=== PATIENT | female | born 1965 | race Caucasian/White ===

== ENCOUNTER 2025-02-12 15:11 | Inpatient (IN) | payer MEDICARE, OTHER ==
[~2025-02-12] VITALS: Ht 154.9 cm; Wt 61.2 kg
[2025-02-12 15:40] LABS: PLATELET COUNT (AUTO) 206 K/uL (179-408); RED BLOOD CELL COUNT(AUTO) 4.06 MIL/uL (3.63-4.92); RED CELL DISTRIBUTION WIDTH 13.4 % (12.3-17.7); WHITE BLOOD COUNT (AUTO) 4.4 K/uL (3.8-11.8)
[2025-02-12 15:47] LABS: CREATININE 0.7 mg/dL (0.6-1.3); SODIUM SERUM 138.0 mmol/L (136-145); UREA NITROGEN, BLOOD 13.0 mg/dL (7-18)
[2025-02-12 15:53] LABS: ASPARTATE AMINOTRANSFERASE 27.0 U/L (15-37); TOTAL PROTEIN, SERUM 6.1 g/dL (6.4-8.2)
[2025-02-12 15:56] LABS: ETHANOL < 3 MG/DL (0-10)
[2025-02-12] MEDS ORDERED: DOCU-141 PO (16:07)
[2025-02-12] MEDS ORDERED: CYAN10009 PO (16:07)
[2025-02-12] MEDS ORDERED: BUDE0.25 NEB (16:07)
[2025-02-12] MEDS ORDERED: POLY119P17 PO (16:10)
[2025-02-12] MEDS ORDERED: GABA-532 PO (16:10)
[2025-02-12] MEDS ORDERED: DICL100G31 TOP (16:10)
[2025-02-12] MEDS ORDERED: LEVO75CA5 PO (16:12)
[2025-02-12] MEDS ORDERED: HYDR-501 PO (16:12)
[2025-02-12] MEDS ORDERED: LEVE750T4 PO (16:12)
[2025-02-12] MEDS ORDERED: MELA3CAP2 PO (16:14)
[2025-02-12] MEDS ORDERED: AMIN30LI45 PO (16:14)
[2025-02-12] MEDS ORDERED: LISI2.5T14 PO (16:14)
[2025-02-12] MEDS ORDERED: MIDO5TAB5 PO (16:17)
[2025-02-12] MEDS ORDERED: PERP2TAB5 PO (16:17)
[2025-02-12] MEDS ORDERED: NORT75CA PO (16:17)
[2025-02-12] MEDS ORDERED: VITA1CAP PO (16:18)
[2025-02-12] MEDS ORDERED: OLANZAPINE 10 MG VIAL IM ONE (16:39)
[2025-02-12] MEDS: OLANZAPINE 10 MG VIAL IM ONE (16:43)
[2025-02-12 17:51] LABS: *BILIRUBIN,URIN NEGATIVE (NEGATIVE); *BLOOD, URINE NEGATIVE (NEGATIVE); *COLOR,URINE YELLOW (YELLOW); *KETONES,URINE NEGATIVE (NEGATIVE); *PROTEIN,URINE NEGATIVE (NEGATIVE); *UROBILINOGEN,URINE 1.0 E.U./dl (NORMAL); LEUKOCYTE ESTERASE ,URINE 1+ (NEGATIVE); NITRITE, URINE NEGATIVE (NEGATIVE); UGLUCOSE NEGATIVE (NEGATIVE)
[2025-02-12 18:11] LABS: *CLARITY,URINE CLEAR (CLEAR)
[2025-02-12 18:14] LABS: *AMPHETAMINE, URINE NEGATIVE (NEGATIVE); *BARBITURATE, URINE NEGATIVE (NEGATIVE); *BENZODIAZEPINE, URINE NEGATIVE (NEGATIVE); *CANNABINOID, URINE NEGATIVE (NEGATIVE); *COCCAINE, URINE NEGATIVE (NEGATIVE); *OPIATE, URINE NEGATIVE (NEGATIVE); *PHENCYCLIDINE SCREEN,URINE NEGATIVE (NEGATIVE); FENTANYL, URINE NEGATIVE (NEGATIVE); SQUAMOUS EPITHELIAL CELL,UR FEW /HPF (NONE SEEN)
[2025-02-12] MEDS ORDERED: MAG HYDROX/AL HYDROX/SIMETH 30 ML LIQUID UDC PO PRN (21:45)
[2025-02-12] MEDS: BLOOD SUGAR DIAGNOSTIC 1 EACH STRIP VI ONE (21:45)
[2025-02-12] MEDS ORDERED: MAGNESIUM HYDROXIDE 30 ML LIQUID UDC PO PRN (21:45)
[2025-02-12 22:20] VITALS: BP 102/57; TEMP 97.4; O2SAT 99
[2025-02-13 07:30] VITALS: BP 102/67; TEMP 98; O2SAT 98
[2025-02-13 08:19] LABS: GLUCOSE FASTING 144.0 mg/dL (70-115)
[2025-02-13] MEDS ORDERED: VITA-287 PO (10:18)
[2025-02-13] MEDS ORDERED: LEVO75TA7 PO (10:18)
[2025-02-13] MEDS: diphenhydrAMINE 50 MG/1 ML VIAL IM ONE (10:34)
[2025-02-13] MEDS: HALOPERIDOL LACTATE 5 MG/1 ML VIAL IM ONE (10:34)
[2025-02-13] MEDS: LORAZEPAM 2 MG/1 ML VIAL IM ONE (10:34)
[2025-02-13 15:57] VITALS: BP 99/61; TEMP 98; O2SAT 99
[2025-02-13 19:00] VITALS: O2SAT 97
[2025-02-13 19:15] VITALS: O2SAT 21; O2SAT 99
[2025-02-13] MEDS: BUDESONIDE 0.25 MG/2 ML NEBU NEB SCH (19:20)
[2025-02-13 20:00] VITALS: BP 111/65; TEMP 98.1; O2SAT 95
[2025-02-13] MEDS: ACETAMINOPHEN 325 MG TABLET PO PRN (21:30)
[2025-02-13] MEDS ORDERED: MIDODRINE HCL 5 MG TABLET ONE (21:31)
[2025-02-13] MEDS: MIDODRINE HCL 5 MG TABLET PO SCH (21:34)
[2025-02-13] MEDS: TEMAZEPAM 15 MG CAPSULE PO PRN (22:55)
[2025-02-14] MEDS: LORAZEPAM 1 MG TABLET PO PRN (01:37)
[2025-02-14] MEDS: LEVOTHYROXINE SODIUM 75 MCG TABLET PO SCH (06:58)
[2025-02-14] MEDS: PROTEIN SUPPLEMENT (PROSTAT) 30 ML LIQUID PO SCH (08:55)
[2025-02-14] MEDS: CYANOCOBALAMIN 1,000 MCG TABLET PO SCH (08:59)
[2025-02-14] MEDS: NORTRIPTYLINE HCL 25 MG CAPSULE PO SCH (08:59)
[2025-02-14] MEDS: LISINOPRIL 5 MG TABLET PO SCH (09:00)
[2025-02-14] MEDS: DOCUSATE SODIUM 100 MG CAPSULE PO SCH (09:00)
[2025-02-14] MEDS ORDERED: POLYETHYLENE GLYCOL 3350 238 GM POWDER PO SCH (09:00)
[2025-02-14] MEDS: VITAMIN B COMPLEX 1 TABLET PO SCH (09:00)
[2025-02-14 09:02] VITALS: BP 98/60; TEMP 98; O2SAT 100
[2025-02-14] MEDS: MIRALAX 17 GM POWD.PACK PO SCH (09:02)
[2025-02-14 15:18] VITALS: BP 90/53; TEMP 98; O2SAT 99
[2025-02-14 20:00] VITALS: BP 103/58; TEMP 97.7; O2SAT 97
[2025-02-15 08:52] VITALS: BP 95/63; TEMP 98; O2SAT 100
[2025-02-15 16:44] VITALS: BP 95/57; TEMP 97.7; O2SAT 97
[2025-02-15 19:45] VITALS: O2SAT 96
[2025-02-15 19:55] VITALS: O2SAT 99
[2025-02-15 20:00] VITALS: BP 106/64; TEMP 97.7; O2SAT 96
[2025-02-15] MEDS ORDERED: BUDESONIDE 0.25 MG/2 ML NEBU ONE (20:31)
[2025-02-16 08:18] VITALS: BP 138/58; TEMP 98; O2SAT 100
[2025-02-16] MEDS: NITROFURANTOIN/NITROFURAN MAC 100 MG CAPSULE PO SCH (11:38)
[2025-02-16 16:53] VITALS: BP 114/71; TEMP 98; O2SAT 100
[2025-02-16 19:58] VITALS: BP 130/66; TEMP 97.8; O2SAT 96
[2025-02-17] VITALS (7 sets, daily range): BP systolic 97–137; BP diastolic 61–71; TEMP 97.7–97.8; O2SAT 95–98
[2025-02-18 08:38] VITALS: BP 119/58; TEMP 97.8; O2SAT 98
[2025-02-18] MEDS: diphenhydrAMINE 50 MG/1 ML VIAL IM ONE (13:34)
[2025-02-18] MEDS: HALOPERIDOL LACTATE 5 MG/1 ML VIAL IM ONE (13:34)
[2025-02-18] MEDS: LORAZEPAM 2 MG/1 ML VIAL IM ONE (13:34)
[2025-02-18 15:48] VITALS: BP 98/65; TEMP 97.5; O2SAT 95
[2025-02-18 19:15] VITALS: O2SAT 96
[2025-02-18 19:56] VITALS: BP 108/71; TEMP 97.6; O2SAT 94
[2025-02-19 08:09] VITALS: BP 97/47; TEMP 98; O2SAT 96
== END 2025-02-19 13:00 | DRG 885 ==
LOC: ER 15:11 → GPS 21:20
PROVIDERS: ADMIT Psychiatry & Neurology Psychiatry; ATTEND Nurse Practitioner Acute Care
DX: F25.9 Schizoaffective disorder, unspecified (principal); E11.65 Type 2 diabetes mellitus with hyperglycemia; G93.41 Metabolic encephalopathy; N39.0 Urinary tract infection, site not specified; G40.909 Epilepsy, unspecified, not intractable, without status epilepticus; Z79.899 Other long term (current) drug therapy; Z86.718 Personal history of other venous thrombosis and embolism; E03.9 Hypothyroidism, unspecified; K21.9 Gastro-esophageal reflux disease without esophagitis; Z79.890 Hormone replacement therapy; M62.50 Muscle wasting and atrophy, not elsewhere classified, unspecified site; B95.2 Enterococcus as the cause of diseases classified elsewhere; R53.1 Weakness; F32.A Depression, unspecified; I10 Essential (primary) hypertension; Z91.52 Personal history of nonsuicidal self-harm
CPT/HCPCS: 36415; 71045; 84443; 85025; 87077; 87086; 94640; 94664; A4606; A4663; C1758; G0480; J1200; J1630; J2060; J2358; J3590

== ENCOUNTER 2025-04-01 17:00 | Inpatient (IN) | payer MEDICARE, OTHER ==
[~2025-04-01] VITALS: Ht 157.5 cm; Wt 62.6 kg
[~2025-04-01 17:00] MED LIST: AMIN30LI45 PO; BUDE0.25 NEB; CYAN10009 PO; DICL100G31 TOP; DOCU-141 PO; HYDR-501 PO; LEVE750T4 PO; LEVO75TA7 PO; LISI2.5T14 PO; MIDO5TAB5 PO; POLY119P17 PO; VITA-287 PO
[2025-04-01 19:24] LABS: PLATELET COUNT (AUTO) 190 K/uL (179-408); RED BLOOD CELL COUNT(AUTO) 4.00 MIL/uL (3.63-4.92); RED CELL DISTRIBUTION WIDTH 13.3 % (12.3-17.7); WHITE BLOOD COUNT (AUTO) 5.1 K/uL (3.8-11.8)
[2025-04-01 19:33] LABS: CREATININE 0.7 mg/dL (0.6-1.3); ETHANOL < 3 MG/DL (0-10); SODIUM SERUM 140 mmol/L (136-145); UREA NITROGEN, BLOOD 19 mg/dL (7-18)
[2025-04-01 19:41] LABS: ASPARTATE AMINOTRANSFERASE 17 U/L (15-37); TOTAL PROTEIN, SERUM 6.2 g/dL (6.4-8.2)
[2025-04-01] MEDS ORDERED: HALOPERIDOL LACTATE 5 MG/1 ML VIAL ONE (19:57)
[2025-04-01] MEDS: HALOPERIDOL LACTATE 5 MG/1 ML VIAL IM ONE (20:04)
[2025-04-01 21:30] VITALS: BP 119/87
[2025-04-01 22:10] VITALS: BP 100/62; TEMP 97.6; O2SAT 100
[2025-04-01] MEDS ORDERED: MAGNESIUM HYDROXIDE 30 ML LIQUID UDC PO PRN (22:30)
[2025-04-01] MEDS ORDERED: TEMAZEPAM 7.5 MG CAPSULE PO PRN ×2 (22:30)
[2025-04-01] MEDS ORDERED: MAG HYDROX/AL HYDROX/SIMETH 30 ML LIQUID UDC PO PRN (22:30)
[2025-04-01] MEDS: BLOOD SUGAR DIAGNOSTIC 1 EACH STRIP VI ONE (22:39)
[2025-04-01] MEDS: LORAZEPAM 1 MG TABLET PO PRN (22:53)
[2025-04-01] MEDS: ACETAMINOPHEN 325 MG TABLET PO PRN (22:58)
[2025-04-02] MEDS ORDERED: ACET-3117 PO (00:15)
[2025-04-02] MEDS ORDERED: RISP2TAB85 PO (00:15)
[2025-04-02] MEDS ORDERED: LORA-259 PO (00:15)
[2025-04-02] MEDS ORDERED: NORT25CA PO (00:15)
[2025-04-02] MEDS: LORAZEPAM 2 MG/1 ML VIAL IM STA (06:13)
[2025-04-02] MEDS: HALOPERIDOL LACTATE 5 MG/1 ML VIAL IM STA (06:13)
[2025-04-02] MEDS: diphenhydrAMINE 50 MG/1 ML VIAL IM STA (06:13)
[2025-04-02] MEDS: LEVOTHYROXINE SODIUM 75 MCG TABLET PO SCH (06:22)
[2025-04-02 07:52] VITALS: BP 118/69; TEMP 98; O2SAT 98
[2025-04-02 08:24] LABS: GLUCOSE FASTING 127.0 mg/dL (70-115)
[2025-04-02] MEDS: VITAMIN B COMPLEX 1 TABLET PO SCH (09:00)
[2025-04-02] MEDS: CYANOCOBALAMIN 1,000 MCG TABLET PO SCH (09:21)
[2025-04-02] MEDS: LISINOPRIL 5 MG TABLET PO SCH (09:22)
[2025-04-02] MEDS: DOCUSATE SODIUM 100 MG CAPSULE PO SCH (09:22)
[2025-04-02] MEDS: diphenhydrAMINE 50 MG/1 ML VIAL IM ONE (11:21)
[2025-04-02] MEDS: HALOPERIDOL LACTATE 5 MG/1 ML VIAL IM ONE (11:22)
[2025-04-02] MEDS: LORAZEPAM 2 MG/1 ML VIAL IM ONE (11:23)
[2025-04-02 15:22] VITALS: BP 92/66; TEMP 98; O2SAT 96
[2025-04-02] MEDS: NORTRIPTYLINE HCL 25 MG CAPSULE PO SCH (17:54)
[2025-04-02 20:32] VITALS: BP 81/48; TEMP 97.4; O2SAT 97
[2025-04-02] MEDS: TEMAZEPAM 15 MG CAPSULE PO PRN (23:05)
[2025-04-03] MEDS: HALOPERIDOL LACTATE 5 MG/1 ML VIAL IM ONE (06:47)
[2025-04-03] MEDS: diphenhydrAMINE 50 MG/1 ML VIAL IM ONE (06:47)
[2025-04-03] MEDS: LORAZEPAM 2 MG/1 ML VIAL IV ONE (06:47)
[2025-04-03 08:03] VITALS: BP 113/71; TEMP 98; O2SAT 98
[2025-04-03] MEDS: NORTRIPTYLINE HCL 25 MG CAPSULE PO SCH (08:32)
[2025-04-03] MEDS: LORAZEPAM 1 MG TABLET PO PRN (12:56)
[2025-04-03 15:53] VITALS: BP 90/58; TEMP 98; O2SAT 100
[2025-04-03] MEDS: DIVALPROEX 125 MG TABLET.DR PO SCH (16:11)
[2025-04-04 08:39] VITALS: BP 113/76; TEMP 97.5
[2025-04-04] MEDS ORDERED: OLANZAPINE 10 MG VIAL IM PRN (11:45)
[2025-04-04 16:12] VITALS: BP 94/55; TEMP 97.9
[2025-04-04 20:21] VITALS: BP 101/54; TEMP 97.9; O2SAT 99
[2025-04-04] MEDS: OLANZAPINE 5 MG TABLET PO SCH (21:26)
[2025-04-05] MEDS: NORTRIPTYLINE HCL 25 MG CAPSULE PO SCH (08:45)
[2025-04-05 16:23] VITALS: BP 133/61; TEMP 97.9
[2025-04-06 20:00] VITALS: BP 95/56; TEMP 97.9; O2SAT 95
[2025-04-06] MEDS: OLANZAPINE 5 MG TABLET PO SCH (21:00)
[2025-04-07 08:35] VITALS: BP 111/70; TEMP 98; O2SAT 96
[2025-04-07 16:15] VITALS: BP 84/52; TEMP 98; O2SAT 96
[2025-04-07 19:59] VITALS: BP 81/46; TEMP 98.1; O2SAT 96
[2025-04-07 20:40] VITALS: BP 93/45
[2025-04-07] MEDS: OLANZAPINE 5 MG TABLET PO SCH (20:41)
[2025-04-08 07:32] VITALS: BP 121/63; TEMP 97.9; O2SAT 100
[2025-04-08] MEDS: HALOPERIDOL LACTATE 5 MG/1 ML VIAL IM ONE (13:21)
[2025-04-08] MEDS: diphenhydrAMINE 50 MG/1 ML VIAL IM ONE (13:21)
[2025-04-08] MEDS: LORAZEPAM 2 MG/1 ML VIAL IM ONE (13:21)
[2025-04-08 20:00] VITALS: BP 110/60; TEMP 98; O2SAT 97
[2025-04-09 07:58] VITALS: BP 113/60; TEMP 98; O2SAT 98
[2025-04-09 08:51] VITALS: BP 113/60
[2025-04-09] MEDS ORDERED: LORAZEPAM 2 MG/1 ML VIAL IV ONE (15:45)
[2025-04-09] MEDS: HALOPERIDOL LACTATE 5 MG/1 ML VIAL IM ONE (15:53)
[2025-04-09] MEDS: LORAZEPAM 2 MG/1 ML VIAL IM ONE (15:53)
[2025-04-09] MEDS: diphenhydrAMINE 50 MG/1 ML VIAL IM ONE (15:54)
== END 2025-04-09 16:36 | DRG 885 ==
LOC: ER 17:13 → GPS 19:00
PROVIDERS: ADMIT Psychiatry & Neurology Psychiatry; ATTEND Nurse Practitioner Acute Care
DX: F25.9 Schizoaffective disorder, unspecified (principal); E44.1 Mild protein-calorie malnutrition; E03.9 Hypothyroidism, unspecified; Z86.718 Personal history of other venous thrombosis and embolism; K21.9 Gastro-esophageal reflux disease without esophagitis; G40.909 Epilepsy, unspecified, not intractable, without status epilepticus; Z79.899 Other long term (current) drug therapy; Z87.440 Personal history of urinary (tract) infections; F32.A Depression, unspecified; Z79.890 Hormone replacement therapy; I10 Essential (primary) hypertension; R79.89 Other specified abnormal findings of blood chemistry; E11.9 Type 2 diabetes mellitus without complications; E78.5 Hyperlipidemia, unspecified
CPT/HCPCS: 36415; 71045; 84443; 85025; G0480; J1200; J1630; J2060